=== PATIENT | female | born 1965 | race Caucasian/White ===

== ENCOUNTER 2021-01-21 00:27 | Emergency (ER) | payer BC ==
[~2021-01-21] VITALS: Ht 154.9 cm; Wt 76.8 kg
--- NOTE | 2021-01-21 00:40 | PHYS DOC ---
Adult General Chief Complaint Chief Complaint: HEADACHE HPI HPI Patient is a 55-year-old female who was recently tested positive for Covid who presents with a headache. States over the last day she has had a whole head headache, 5 out of 10, dull and achy in nature. States she took 2 Tylenol earlier in the day with minimal relief. States she had not taken any other medications. Denies nasal congestion, sore throat, chest pain, shortness of breath, abdominal pain, nausea, vomiting, diarrhea, dysuria, hematuria or blood in the stool. States has been eating and drinking normally for her. States she is making urine and stool normal for her. Denies any recent travel, fevers, kno wn ill contacts. Review of Systems Review of Systems Review of systems otherwise unremarkable except noted in HPI Physical Exam Physical Exam Constitutional: Well developed, well nourished, no acute distress, non-toxic appearance. [] HENT: Normocephalic, atraumatic, bilateral external ears normal, oropharynx moist, no oral exudates, nose normal. [] Eyes: conjunctiva normal, no discharge. [] Neck: Normal range of motion, no tenderness, supple, no stridor. [] Cardiovascular:Heart rate regular rhythm, no murmur [] Lungs & Thorax: Bilateral breath sounds clear to auscultation [] Abdomen: soft, no tenderness, no masses, no pulsatile masses. [] Skin: Warm, dry, no erythema, no rash. [] Back: No tenderness, Extremities: No tenderness, no cyanosis, no clubbing, ROM intact, no edema. [] Neurologic: Alert and oriented X 3, normal motor function, normal sensory function, no focal deficits noted. [] Psychologic: Affect normal, judgement normal, mood normal. [] EKG EKG [] Radiology/Procedures Radiology/Procedures [] Heart Score Risk Factors: Risk Factors: DM, Current or recent (<one month) smoker, HTN, HLP, family history of CAD, obesity. Risk Scores: Risk Factors: DM, Current or recent (<one month) smoker, HTN, HLP, family history of CAD, obesity. Course & Med Decision Making Course & Med Decision Making Patient is a 55-year-old female who presents Covid positive with a headache Vital signs not concerning. Physical exam noted above. Patient given NSAIDs and Benadryl. Given p.o. fluids which she tolerated well. On reassessment patient stated she was feeling better and was ready to be discharged home. Advised to follow quarantine guidelines given to her by her primary care physician. Advised to use [id number] Tylenol, ibuprofen and cold remedies as needed and indicated on the packaging. Advised to call primary care physician to update on ED visit and set up follow-up. Advised to come back to the ED with new or concerning symptoms. Patient grateful, verbalized understanding and agreed with plan of discharge. [] Dragon Disclaimer Dragon Disclaimer This electronic medical record was generated, in whole or in part, using a voice recognition dictation system. Departure Departure: Impression: Primary Impression: Headache Disposition: 01 DC HOME SELF CARE/HOMELESS Condition: GOOD Referrals: ROBINSON TUTTLE MD (PCP) Patient Instructions: General Headache Without Cause, Headache, FAQs Additional Instructions: COVID-19 is an infection caused by a new type of coronavirus. COVID-19 will cause cold-like or mild flu symptoms in most. It can cause more severe symptoms like problems breathing in some. There is no treatment for COVID-19. The body will clear the infection over time. Self-care will help to ease discomfort. Steps to Take: Self-Care Rest as needed. Healthy habits may help you feel better. Steps include: Choose healthy foods including fruits and vegetables. Drink water throughout the day. Get plenty of sleep each night. If you smoke, try to quit. It may ease breathing. Avoid alcohol. Keep Others Healthy The virus can spread to others. Droplets are released every time you sneeze or cough. The droplets can get into the mouth, nose, or eyes of people near you and lead to infection. To lower the chances of spreading COVID-19 to others: Stay at home until your doctor has said it is safe to leave. If you tested positive this will mean staying isolated until both of the following are true: At least 7 days have passed since the start of illness. You are free of fever for at least 72 hours without the use of medicine. During this time: - Avoid public areas, events, or transportation. Do not return to work or school until your doctor has said it is safe to do so. - Call ahead if you need to go to a medical center. Let them know you may have COVID-19. It will help them guide you where to go. They may also ask you to wear a facemask when you come to the office. - If you call for emergency medical services, let them know you may have COVID- 19. While at home: - Try to avoid close contact with others. Stay about 6 feet away. - If possible, spend most of your time in a separate room from others. - Use a face mask if you will be in close contact with others such as sharing a room or vehicle. - Have someone wipe down common surfaces in the home. Use household raw silk grader every day on areas like doorknobs, counters, or sinks. - Cough or sneeze into a tissue. Throw the tissue away right after use. If a tissue is not available, cough or sneeze into your elbow. - Wash your hands often. Wash them after sneezing or coughing. Use soap and water and wash for at least 20 seconds. Alcohol based hand cleaner furniture can be used if soap and water is not available. - Do not prepare food for others. Avoid sharing personal items like forks, spoons, or toothbrushes. - Avoid close contact with pets while you are sick. There is no evidence of the virus passing to pets. This is a safety step until more is known about this virus. Isolation can be frustrating. Social interaction can help. Keep in touch with friends and family through phone and tech options. You can still interact with others in your home, just keep a safe distance of about 6 feet. Follow-up: Your doctors office will check in with you to see if there are any changes in your health. You may be asked to keep track of symptoms to share with them. They will also let you know when you are clear to be in public again. Problems to Look Out For: Contact your doctor if your recovery is not going as you expect. Get emergency care if you have problems such as: - Trouble breathing - Nonstop chest pain or pressure - Changes in awareness, confusion, or problems waking - Lips or face have bluish color - Worsening of symptoms If you think you have an emergency, call for emergency medical services right away. [facility] Jan 21, 2021 00:40
[2021-01-21] MEDS ORDERED: IBUPROFEN 800 MG TABLET. PO ONE ×2 (00:52→01:15)
[2021-01-21] MEDS ORDERED: diphenhydrAMINE HCL 25 MG CAPSULE PO ONE (01:00)
[2021-01-21] MEDS ORDERED: IBUPROFEN 600 MG TABLET. PO ONE ×2 (01:00)
[2021-01-21 02:21] VITALS: BP 134/68
[2021-01-21] MEDS ORDERED: ONDA4TAB7 PO (20:38)
[2021-01-21] MEDS ORDERED: LEVO500T8 PO (20:38)
== END 2021-01-21 02:20 | disposition home or self-care (01) ==
LOC: ER 00:27
DX: R51.9 Headache, unspecified (principal)
CPT/HCPCS: 99283; Q0163

== ENCOUNTER 2021-01-21 17:46 | Emergency (ER) | payer BC ==
[~2021-01-21] VITALS: Ht 154.9 cm; Wt 76.8 kg
--- NOTE | 2021-01-21 18:56 | RAD ---
INDICATION: Reason: CHEST PAIN, COVID POSITIVE / Spl. Instructions: / History: COMPARISON: None. FINDINGS: 2 views of chest obtained. Calcific atherosclerosis. Cardiac silhouette upper limits of normal in size. Patchy opacities bilater ally most prominent at the right greater than left lung base. IMPRESSION: * Right greater than left basilar airspace consolidation which could be infectious in nature. Electronically signed by: Ulises Aguilar MD (01/21/2021 6:54 PM) [id number]
--- NOTE | 2021-01-21 20:13 | PHYS DOC ---
Past History Past Medical History: No Pertinent History Past Surgical History: Gastric Bypass, Hysterectomy Alcohol Use: Rarely Adult General Chief Complaint Chief Complaint: HEADACHE HPI HPI Patient is a 55-year-old female who presents Covid positive with a chief complaint of new onset cough and headache. States she had a headache yesterday, came to the emergency department and felt much better after leaving. States that she started getting a cough this morning and coughed so much it gave her headache again. Denies sore throat, runny nose, chest pain, shortness of breath, abdominal pain, nausea, vomiting. States she is on day 8 of her quarantine. States she is eating and drinking normally. States he is making urine and stool normally for her. Review of Systems Review of Systems Review of systems otherwise unremarkable except noted in HPI Current Medications Current Medications Current Medications Medications (Trade) Dose Ordered Sig/Sander Start Time Stop Time Status Last Admin Dose Admin Acetaminophen (Tylenol) 1,000 mg 1X ONCE 01/21/21 20:15 01/21/21 20:16 UNV Ibuprofen (Motrin) 600 mg 1X ONCE 01/21/21 20:15 01/21/21 20:16 UNV Levofloxacin (Levaquin) 500 mg 1X ONCE 01/21/21 20:15 01/21/21 20:16 UNV Allergies Allergies Allergies Coded Allergies Type Severity Reaction Last Updated Verified Sulfa (Sulfonamide Antibiotics) Allergy Intermediate Hives 01/21/21 Yes Physical Exam Physical Exam Constitutional: Well developed, well nourished, no acute distress, non-toxic appearance. [] HENT: Normocephalic, atraumatic, bilateral external ears normal, oropharynx moist, no oral exudates, nose normal. [] Eyes: conjunctiva normal, no discharge. [] Neck: Normal range of motion, no tenderness, Cardiovascular:Heart rate regular rhythm, no murmur [] Lungs & Thorax: Patient has mild generalized rhonchi, no wheezing, no hypoxia, no tachypnea Abdomen: soft, no tenderness, no masses, no pulsatile masses. [] Skin: Warm, dry, no erythema, no rash. [] Back: No tenderness, Extremities: No tenderness, no cyanosis, no clubbing, ROM intact, no edema. [] Neurologic: Alert and oriented X 3, normal motor function, normal sensory function, no focal deficits noted. [] Psychologic: Affect normal, judgement normal, mood normal. [] Current Patient Data Vital Signs Vital Signs Date Time Temp Pulse Resp B/P (MAP) Pulse Ox O2 Delivery O2 Flow Rate FiO2 01/21/21 18:17 98.1 72 18 134/68 (90) 95 Room Air EKG EKG [] Radiology/Procedures Radiology/Procedures [] Heart Score Risk Factors: Risk Factors: DM, Current or recent (<one month) smoker, HTN, HLP, family history of CAD, obesity. Risk Scores: Risk Factors: DM, Current or recent (<one month) smoker, HTN, HLP, family history of CAD, obesity. Course & Med Decision Making Course & Med Decision Making Patient is a 55-year-old female presents with cough, that is Covid positive and headache Vital signs not concerning. Physical exam noted above. Patient given Tylenol, and ibuprofen as she had not taken anything today. Chest x-ray suggestive of airspace consolidation which could be infectious in nature. Patient started on Levaquin in the ED. Patient able to take p.o. juice in the ED without issue. Denied need for nausea medication at this time. Advised on continued medication management at home with [id number] NSAIDs and cold medicines. Advised to call her primary care physician first thing in the morning to update on ED visit. Patient grateful, verbalized understanding and agreed with plan of discharge. [] Dragon Disclaimer Dragon Disclaimer This electronic medical record was generated, in whole or in part, using a voice recognition dictation system. Departure Departure: Impression: Primary Impression: Cough Disposition: 01 DC HOME SELF CARE/HOMELESS Condition: GOOD Referrals: ROBINSON TUTTLE MD (PCP) Patient Instructions: Cough, Adult, Pneumonia, Adult Additional Instructions: Please read all the attached information. Please continue take Tylenol, ibuprofen as needed. Please take your antibiotics as prescribed. Please continue to eat and drink normally. Please call your primary care physician first thing in the morning to update on your ED visit and quarantine status. Samreen zamora continue to follow your quarantine protocol. Please come back to the emergency department immediately with new or concerning symptoms. Scripts Ondansetron Hcl (ZOFRAN) 4 Mg Tablet 1 TAB PO TID PRN PRN for NAUSEA for 3 Days, #9 TAB 1 Refill Prov: JOAN FERRARO MD 01/21/21 Levofloxacin (LEVOFLOXACIN) 500 Mg Tablet 1 TAB PO DAILY for PNA for 6 Days, #6 TAB Prov: JOAN FERRARO MD 01/21/21 JOAN FERRARO MD Jan 21, 2021 20:13
[2021-01-21] MEDS ORDERED: ACETAMINOPHEN 500 MG TABLET PO ONE (20:15)
[2021-01-21] MEDS ORDERED: levoFLOXacin 500 MG TABLET PO ONE (20:15)
[2021-01-21] MEDS ORDERED: IBUPROFEN 600 MG TABLET. PO ONE (20:15)
[2021-01-21] MEDS ORDERED: LEVO500T8 PO (20:38)
[2021-01-21] MEDS ORDERED: ONDA4TAB7 PO (20:38)
[2021-01-21 20:52] VITALS: BP 129/92
== END 2021-01-21 20:52 | disposition home or self-care (01) ==
LOC: ER 17:46
DX: R05 Cough (principal); R51.9 Headache, unspecified; Z88.2 Allergy status to sulfonamides
CPT/HCPCS: 71046; 99284

== ENCOUNTER → 2021-03-25 | Outpatient (CLI) | payer BC ==
[~2021-03-25] MED LIST: LEVO500T8 PO; ONDA4TAB7 PO
--- NOTE | 2021-03-25 16:07 | RAD ---
EXAM: Neck CT without contrast. HISTORY: Palpable lump. TECHNIQUE: Computed tomographic images of the neck were obtained without contrast. *One or more of the following individualized dose reduction techniques were utilized for this examina tion: 1. Automated exposure control. 2. Adjustment of the mA and/or kV according to patient size. 3. Use of iterative reconstruction technique. COMPARISON: None. FINDINGS: There is no suspicious finding within the left posterior neck at the site of palpable kory rn demarcated by a skin marker. The airways midline and widely patent. There is a prominent left subm andibular lymph node. This measures 2.1 cm in long axis. No additional enlarged lymph node is seen. T he parotid and submandibular glands are unremarkable. No thyroid nodule is seen. The lung apices are clear. The visualized portions of the brain are unremarkable. The orbits are unremarkable. The paranasal sinuses are clear. The mastoid air cells are clear. There is calcified atherosclerotic plaque involving the carotid bifurcations. Evaluation for stenosis is li mited in the absence of contrast. There are degenerative changes involving the cervical spine. This i ncludes multilevel facet arthropathy resulting in moderate left foraminal stenosis at C3-C4 and mild bilateral foraminal stenosis at C4-C5. IMPRESSION: 1. No suspicious finding within the left posterior neck at the site of palpable concern. Continued cl inical follow-up of palpable abnormalities is recommended. 2. Prominent left submandibular lymph node. In the absence of additional lymphadenopathy, likely phys iologic or reactive in etiology. Electronically signed by: Radha Echeverria MD (03/25/2021 4:05 PM) [id number]
== END ==
LOC: CT 15:03
PROVIDERS: ATTEND Family Medicine
DX: M47.812 Spondylosis without myelopathy or radiculopathy, cervical region (principal); M48.02 Spinal stenosis, cervical region
CPT/HCPCS: 70490